=== PATIENT | female | born 1975 | race Caucasian/White ===

== ENCOUNTER 2017-07-09 11:15 | Emergency (ER) | payer SELFPAY ==
[2017-07-09] MEDS ORDERED: Meclizine HCl 25 MG TAB ONE (11:53)
== END 2017-07-09 14:30 | disposition home or self-care (01) ==
LOC: ERS 11:15
DX: H83.09 Labyrinthitis, unspecified ear (principal); F39 Unspecified mood [affective] disorder; K21.9 Gastro-esophageal reflux disease without esophagitis; Z87.891 Personal history of nicotine dependence
CPT/HCPCS: 93005

== ENCOUNTER 2017-10-01 14:04 | Emergency (ER) | payer SELFPAY ==
[2017-10-01] MEDS ORDERED: Ketorolac Tromethamine 30 MG/ML VIAL ONE (14:39)
--- NOTE | 2017-10-01 15:07 | RAD ---
TWO VIEWS OF THE RIGHT HIP: Comparison: None. History: Right hip pain after falling at work on Saturday. FINDINGS: Two views of the right hip shows no evidence of acute fracture or dislocation. No degenerative change s are seen. IMPRESSION: Unremarkable exam. POS: [facility]
== END 2017-10-01 15:04 | disposition home or self-care (01) ==
LOC: ERS 14:04
DX: S70.02XA Contusion of left hip, initial encounter (principal); S20.212D Contusion of left front wall of thorax, subsequent encounter; F41.9 Anxiety disorder, unspecified; F32.9 Major depressive disorder, single episode, unspecified; Z87.891 Personal history of nicotine dependence
CPT/HCPCS: 96372; J1885

== ENCOUNTER 2018-10-13 13:39 | Outpatient (CLI) | payer BC ==
--- NOTE | 2018-10-13 14:25 | MMO ---
Bilateral MAMMO Bilat Screen [facility]. CLINICAL HISTORY: Patient is 43 years old and is seen for screening. The patient has no family history of breast cancer. The patient has a history of cervical cancer 2000. VIEWS: The views performed were: bilateral craniocaudal with tomosynthesis and bilateral mediolateral oblique with tomosynthesis. MAMMOGRAM FINDINGS: There are scattered fibroglandular densities. There are no suspicious masses, suspicious calcifications, or new areas of architectural distortion. IMPRESSION: THERE IS NO MAMMOGRAPHIC EVIDENCE OF MALIGNANCY. A ROUTINE FOLLOW-UP MAMMOGRAM IN 1 YEAR IS RECOMMENDED. THE RESULTS OF THIS EXAM WERE SENT TO THE PATIENT. ACR BI-RADS Category 1 - Negative MAMMOGRAPHY NOTE: 1. A negative mammogram report should not delay a biopsy if a dominant of clinically suspicious mass is present. 2. Approximately 10% to 15% of breast cancers are not detected by mammography. 3. Adenosis and dense breasts may obscure an underlying neoplasm. Reported by: SAMARIA HONG MD Electonically Signed: [id number]
== END 2018-10-13 13:40 | disposition home or self-care (01) ==
LOC: BICMAMMO 13:39
PROVIDERS: ATTEND Physician Assistant
DX: Z12.31 Encounter for screening mammogram for malignant neoplasm of breast (principal); Z85.41 Personal history of malignant neoplasm of cervix uteri
CPT/HCPCS: 77063; 77067

== ENCOUNTER 2019-11-11 12:31 | Outpatient (CLI) | payer BC ==
--- NOTE | 2019-11-11 13:21 | RAD ---
Exam: 3 views lumbar spine Comparison 04/15/2017 HISTORY: Sacroiliitis. Line findings: 5 lumbar type vertebra. Lumbar spine vertebral body heights are maintained. No fractur e. No spondylolisthesis or spondylolysis. Disc space heights are preserved Nonspecific bowel gas pattern Patent and symmetric sacroiliac joints. Visualized bony pelvis and sacrum are intact IMPRESSION: No radiographic evidence of significant degenerative change. Patent and symmetric sacroil iac joints.
== END 2019-11-11 12:32 | disposition home or self-care (01) ==
LOC: RAD 12:31
PROVIDERS: ATTEND Family Medicine
DX: M46.1 Sacroiliitis, not elsewhere classified (principal)
CPT/HCPCS: 72100

== ENCOUNTER 2020-10-07 14:24 | Outpatient (CLI) | payer BC | END 2020-10-07 14:25 | disposition home or self-care (01) | LOC: TBSIIMAG 14:24 | PROVIDERS: ATTEND Family Medicine | DX: M51.16 Intervertebral disc disorders with radiculopathy, lumbar region (principal); M51.27 Other intervertebral disc displacement, lumbosacral region | CPT/HCPCS: 72148 ==